=== PATIENT | female | born 1980 | race Caucasian/White ===

== ENCOUNTER → 2021-05-20 | Outpatient (CLI) | payer OTHER ==
[~2021-05-20] MED LIST: BUSP10TA PO; CLON1TAB PO; HYDR1TAB15 PO; HYDR1TAB53 PO; IBUP200C75 PO; MULT-208 PO; OXYC1TAB14 PO; OXYC1TAB18 PO; VENL75TA PO; ZOLP10TA PO
[2021-05-20 09:29] LABS: BASOPHILS % (AUTO) 0 % (0-1); EOSINOPHILS % (AUTO) 0 % (1-7); LYMPHOCYTES % (AUTO) 34 % (22-44); MEAN CORPUSCULAR HEMOGLOBIN 26.1 pg (27.0-34.8); MEAN CORPUSCULAR HGB CONC 32.5 g/dL (32.4-35.8); MEAN PLATELET VOLUME 8.1 fL (7.4-10.4); MONOCYTES % (AUTO) 9 % (2-9); NEUTROPHILS % (AUTO) 57 % (42-75); PLATELET COUNT 281 x10^3/uL (130-400); RED BLOOD COUNT 4.52 x10^6/uL (3.82-5.3); RED CELL DISTRIBUTION WIDTH 17.2 % (9.6-15.2)
[2021-05-20 09:38] LABS: PROTHROMBIN TIME 10.7 Seconds (9.6-11.5)
[2021-05-20 10:23] LABS: ALBUMIN 3.8 g/dL (3.4-5.0); ANION GAP 5 mmol/L (5-15); CALCIUM 8.9 mg/dL (8.5-10.1); CHLORIDE 105 mmol/L (98-107)
[2021-05-20 10:56] LABS: ALANINE AMINOTRANSFERASE 21 U/L (12-78); ALKALINE PHOSPHATASE 38 U/L (45-117); BILIRUBIN,TOTAL 0.3 mg/dL (0.2-1.0); TOTAL PROTEIN 7.8 g/dL (6.4-8.2)
== END | disposition home or self-care (01) ==
LOC: STAR 08:16
PROVIDERS: ATTEND Obstetrics & Gynecology
DX: Z01.818 Encounter for other preprocedural examination (principal); N83.201 Unspecified ovarian cyst, right side; R10.2 Pelvic and perineal pain
CPT/HCPCS: 36415; 71046; 80053; 84703; 85025; 85610; 85730; 86304; 93005

== ENCOUNTER 2021-05-24 05:42 | Day surgery (SDC) | payer OTHER ==
[~2021-05-24] VITALS: Ht 165.1 cm; Wt 49.5 kg
[~2021-05-24 05:42] MED LIST changes: +OXYC1TAB12 PO; -OXYC1TAB14 PO
[2021-05-24 06:30] VITALS: BP 119/76
[2021-05-24] MEDS ORDERED: CHLORHEXIDINE 15 ML UDC PO ONE ×3 (06:30)
[2021-05-24] MEDS ORDERED: CEFOTETAN PMX 2GM/50ML 50 ML IVPB ONE ×3 (06:30)
[2021-05-24] MEDS ORDERED: LACTATED RINGERS 1,000 ML IV SCH (06:30)
[2021-05-24] MEDS ORDERED: MIDAZOLAM 1 MG/ML, 2ML ONE (06:57)
[2021-05-24] MEDS ORDERED: FENTANYL PF 250 MCG/5ML ONE ×2 (06:57→08:15)
[2021-05-24] MEDS ORDERED: BUPIVACAINE 0.25% ONE (07:01)
[2021-05-24] MEDS ORDERED: INDOCYANINE GREEN 25 MG VIAL ONE (07:01)
[2021-05-24] MEDS ORDERED: EPINEPHRINE 1 MG/ML, 1ML ONE (07:02)
[2021-05-24] MEDS ORDERED: HEPARIN 1,000 UNITS/ML, 10ML ONE (07:02)
[2021-05-24] MEDS ORDERED: SCOPOLAMINE 1MG PATCH TD ONE (07:12)
[2021-05-24] MEDS ORDERED: DEXAMETHASONE 4 MG/ML, 1ML ONE (07:40)
[2021-05-24] MEDS ORDERED: LIDOCAINE 2% 100MG/5ML SYRINGE ONE (07:40)
[2021-05-24] MEDS ORDERED: METOCLOPRAMIDE 5 MG/ML, 2ML ONE (07:40)
[2021-05-24] MEDS ORDERED: KETAMINE 50 MG/ML, 10ML ONE (07:40)
[2021-05-24] MEDS ORDERED: SUCCINYLCHOLINE 20 MG/ML, 10ML ONE (07:40)
[2021-05-24] MEDS ORDERED: ROCURONIUM 10 MG/ML,10ML ONE (07:40)
[2021-05-24] MEDS ORDERED: ONDANSETRON 2MG/ML, 2ML ONE (07:40)
[2021-05-24] MEDS ORDERED: PROPOFOL 50 ML ONE ×2 (07:53→07:56)
[2021-05-24] MEDS ORDERED: MEPERIDINE/PF 50 MG/ML ONE (10:04)
[2021-05-24] MEDS: FENTANYL PF 100 MCG/2ML IV PRN ×2 (10:40→11:00)
[2021-05-24] MEDS ORDERED: FENTANYL PF 100 MCG/2ML ONE (10:42)
[2021-05-24] MEDS ORDERED: OXYcodone 5 MG/5 ML ORAL.SOL UDC ONE (10:43)
[2021-05-24] MEDS ORDERED: PROMETHAZINE 25 MG/ML, 1ML IVPush PRN (11:30)
[2021-05-24] MEDS ORDERED: OXYcodone 5 MG/5 ML ORAL.SOL UDC PO PRN (11:30)
== END 2021-05-24 16:37 | disposition home or self-care (01) ==
LOC: OUT 05:42
PROVIDERS: ATTEND Obstetrics & Gynecology
DX: R10.2 Pelvic and perineal pain (principal); N87.9 Dysplasia of cervix uteri, unspecified; D25.1 Intramural leiomyoma of uterus; N72 Inflammatory disease of cervix uteri; N88.8 Other specified noninflammatory disorders of cervix uteri; N83.201 Unspecified ovarian cyst, right side; N94.10 Unspecified dyspareunia; N94.6 Dysmenorrhea, unspecified; N92.0 Excessive and frequent menstruation with regular cycle; N73.6 Female pelvic peritoneal adhesions (postinfective); E03.9 Hypothyroidism, unspecified; F41.9 Anxiety disorder, unspecified; F32.9 Major depressive disorder, single episode, unspecified; Z79.891 Long term (current) use of opiate analgesic; Z79.899 Other long term (current) drug therapy; Z90.721 Acquired absence of ovaries, unilateral; Z90.79 Acquired absence of other genital organ(s); Z82.49 Family history of ischemic heart disease and other diseases of the circulatory system
CPT/HCPCS: 36415; 58552; 86850; 86900; 86923; 88307; J0171; J0330; J1100; J2175; J2250; J2405; J2704; J2765; J3010; J7120; S2900; J1644